=== PATIENT | male | born 1960 ===

== ENCOUNTER 2017-12-30 11:13 | Inpatient (IN) | payer OTHER ==
[~2017-12-30] VITALS: Ht 172.7 cm; Wt 104.3 kg
[2017-12-30] MEDS ORDERED: FORTAMET1000 MG (11:27)
[2017-12-30] MEDS ORDERED: JARDIANCE25 MG (11:27)
[2017-12-30] MEDS ORDERED: TOPROL XL50 M1 (11:27)
[2017-12-30] MEDS ORDERED: PRAVACHOL80 MG (11:28)
[2017-12-30] MEDS ORDERED: LISINOPRIL5 MG (11:28)
[2018-01-15] MEDS ORDERED: CEFEPIME HCL2 GM IV (07:51)
[2018-01-15] MEDS ORDERED: DOXYCYCLINE HY100 MG PO (07:51)
[2018-01-15] MEDS ORDERED: LISINOPRIL20 MG PO (07:51)
[2018-01-15] MEDS ORDERED: METOPROLOL TART50 MG PO (07:51)
== END 2018-01-15 16:42 | disposition home health service (06) | DRG 572 ==
LOC: ER 11:13 → SURH 17:27 → MEDJ 17:27 → MEDI 20:48 → MEDJ 12-31 08:10
PROVIDERS: Specialist
PROC: B54CZZZ Ultrasonography of Left Lower Extremity Veins (ICD-10-PCS; 2017-12-30)
PROC: 8E0ZXY6 Isolation (ICD-10-PCS; 2017-12-30)
PROC: BQ2SZZZ Computerized Tomography (CT Scan) of Left Lower Extremity (ICD-10-PCS; 2017-12-31)
PROC: 0JBP0ZZ Excision of Left Lower Leg Subcutaneous Tissue and Fascia, Open Approach (ICD-10-PCS; principal; 2018-01-03 07:45)
PROC: 05H333Z Insertion of Infusion Device into Right Innominate Vein, Percutaneous Approach (ICD-10-PCS; 2018-01-04)
PROC: 0JBP0ZZ Excision of Left Lower Leg Subcutaneous Tissue and Fascia, Open Approach (ICD-10-PCS; 2018-01-14)
DX: L03.116 Cellulitis of left lower limb (principal); E78.4 Other hyperlipidemia; Z95.1 Presence of aortocoronary bypass graft; E11.22 Type 2 diabetes mellitus with diabetic chronic kidney disease; E11.65 Type 2 diabetes mellitus with hyperglycemia; I12.9 Hypertensive chronic kidney disease with stage 1 through stage 4 chronic kidney disease, or unspecified chronic kidney disease; N18.3 Chronic kidney disease, stage 3 (moderate); E66.8 Other obesity; Z68.39 Body mass index [BMI] 39.0-39.9, adult; B96.89 Other specified bacterial agents as the cause of diseases classified elsewhere